=== PATIENT | male | born 1940 | race Caucasian/White ===

== ENCOUNTER 2022-01-29 15:27 | Inpatient (IN) | payer MEDICARE, OTHER ==
[~2022-01-29] VITALS: Ht 177.8 cm; Wt 94.6 kg
--- NOTE | 2022-01-29 15:37 | NUR ---
PT IS IN ROOM #2A. DR العراقي EVALUATED THE PT.
[2022-01-29] MEDS ORDERED: METOPROLOL TARTRATE 50 MG TABLET PO ONE (15:45)
[2022-01-29] MEDS ORDERED: CLOPIDOGREL 75 MG TABLET PO ONE (15:45)
[2022-01-29] MEDS ORDERED: NITROGLYCERIN OINT 1 GM PACKET TP ONE ×2 (15:45→16:08)
[2022-01-29] MEDS ORDERED: ENOXAPARIN SODIUM 30 MG/0.3 ML DISP.SYRIN SUBCUT ONE (15:45)
[2022-01-29] MEDS ORDERED: ASPI81TA31 PO (15:57)
[2022-01-29] MEDS ORDERED: AMLO10TA4 PO (15:57)
[2022-01-29] MEDS ORDERED: ZOLP10TA2 PO (15:57)
[2022-01-29] MEDS ORDERED: METF-440 PO (15:57)
[2022-01-29] MEDS ORDERED: CA C1TAB71 PO (15:57)
[2022-01-29] MEDS ORDERED: OXYC-133 PO (15:57)
[2022-01-29] MEDS ORDERED: LISI20TA30 PO (15:57)
[2022-01-29] MEDS ORDERED: NALO25TA4 PO (15:57)
[2022-01-29] MEDS ORDERED: CYAN-51 PO (15:57)
[2022-01-29] MEDS ORDERED: CLOPIDOGREL 75 MG TABLET ONE (16:07)
[2022-01-29] MEDS ORDERED: METOPROLOL TARTRATE 50 MG TABLET ONE (16:07)
[2022-01-29] MEDS ORDERED: ENOXAPARIN SODIUM 100 MG/ML DISP.SYRIN SQ ONE (16:07)
[2022-01-29 16:15] LABS: HEMATOCRIT 25.4 % (36.7-47.1); MEAN CORPUSCULAR HEMOGLOBIN 34.5 uug (23.8-33.4); MEAN CORPUSCULAR VOLUME 102.5 fL (73.0-96.2); PLATELET COUNT (AUTO) 337 K/uL (152-348)
[2022-01-29 16:21] LABS: CARBON DIOXIDE 21 mmol/L (21-32); CHLORIDE 104 mmol/L (98-107); CREATININE 1.3 mg/dL (0.6-1.3); GLUCOSE 170 mg/dL (74-106); POTASSIUM 4.2 mmol/L (3.5-5.1); UREA NITROGEN, BLOOD 23 mg/dL (7-18)
[2022-01-29 16:34] LABS: ALANINE AMINOTRANSFERASE 12 U/L (16-63); ALKALINE PHOSPHATASE 66 U/L (50-136); ASPARTATE AMINOTRANSFERASE 8 U/L (15-37); BILIRUBIN,DIRECT 0.4 mg/dL (0.0-0.2); BILIRUBIN,TOTAL 1.4 mg/dL (0.2-1.0); TOTAL PROTEIN, SERUM 6.8 g/dL (6.4-8.2)
[2022-01-29] MEDS ORDERED: LISI1TAB55 PO (17:10)
[2022-01-29] MEDS ORDERED: OXYCODONE/APAP 5-325 MG TABLET PO ONE (18:30)
[2022-01-29] MEDS ORDERED: OXYCODONE/APAP 5-325 MG TABLET ONE (18:47)
--- NOTE | 2022-01-29 19:00 | NUR ---
Report received from morning shift. Pt sitting in bed, AOx4. Denies any pain or discomfort at this time. No SOB or labored breathing.
[2022-01-29] MEDS ORDERED: ONDANSETRON 4 MG/2 ML VIAL IV PRN (20:15)
[2022-01-29] MEDS ORDERED: Medication Not On Formulary EA (Lisinopril/HCTZ (Lisinopril-Hctz 20-12.5 Mg Tab) 1 TAB) PO SCH (20:15)
[2022-01-29] MEDS ORDERED: MAGNESIUM HYDROXIDE 30 ML LIQUID UDC PO PRN (20:15)
[2022-01-29] MEDS ORDERED: HYDROCODONE/APAP 5-325MG TABLET PO PRN (20:30)
[2022-01-29] MEDS ORDERED: LISINOPRIL 20 MG TABLET PO SCH (21:00)
[2022-01-29] MEDS ORDERED: HYDROCHLOROTHIAZIDE 12.5 MG CAPSULE PO SCH (21:00)
--- NOTE | 2022-01-29 21:01 | NUR ---
Report given to Delilah YOUNG. Pt going to room 319
--- NOTE | 2022-01-29 21:10 | NUR ---
Admitted a 81 years old male with Dx of CP. Patient AAOX4. In no apparent distress. Denies any CP or any other pain. Denies SOB during admission. O2 sat at 98% on RA. IV site on left AC intact and patent. With 2+ pitting edema on bilateral LE. NSR on tele with HR of 79/min. Routine admission care done. Plan of care initiated. Safety measure initiated and call light within reached. Continue to monitor.
--- NOTE | 2022-01-29 21:18 | NUR ---
Pt. admitted to Tele room 319, under care of Dr. Navarrete. Belongs List completed.
[2022-01-29 21:30] VITALS: BP 124/59
[2022-01-29] MEDS: ZOLPIDEM 5 MG TABLET PO PRN (21:47)
[2022-01-30 04:00] VITALS: BP 111/60
--- NOTE | 2022-01-30 05:26 | NUR ---
In no acute distress. No complain of any pain or SOB. NSR with 1st degree AV block on tele with HR of 75/min. IV site on left AC intact and patent. Needs attended to and met. Safety measure maintained and call light within reached.
[2022-01-30] MEDS: PANTOPRAZOLE SODIUM 40 MG TABLET.DR PO SCH (06:18)
[2022-01-30 06:31] LABS: HEMATOCRIT 22.8 % (36.7-47.1); MEAN CORPUSCULAR HEMOGLOBIN 34.7 uug (23.8-33.4); MEAN CORPUSCULAR VOLUME 101.1 fL (73.0-96.2); PLATELET COUNT (AUTO) 326 K/uL (152-348)
[2022-01-30 06:53] LABS: CREATININE 1.3 mg/dL (0.6-1.3); PHOSPHOROUS 3.3 mg/dL (2.5-4.9); POTASSIUM 4.3 mmol/L (3.5-5.1); TOTAL PROTEIN, SERUM 6.1 g/dL (6.4-8.2)
[2022-01-30 07:22] LABS: THYROID STIMULATING HORMONE 1.888 mIU/mL (0.358-3.740)
[2022-01-30] MEDS ORDERED: HYDROCHLOROTHIAZIDE 12.5 MG CAPSULE PO SCH (09:00)
[2022-01-30] MEDS ORDERED: LISINOPRIL 20 MG TABLET PO SCH ×2 (09:00)
[2022-01-30] MEDS: ASPIRIN 81 MG TAB.CHEW PO SCH (09:17)
[2022-01-30] MEDS: CYANOCOBALAMIN 1,000 MCG TABLET PO SCH (09:17)
[2022-01-30] MEDS: AMLODIPINE 10 MG TABLET PO SCH (09:19)
[2022-01-30] MEDS: ACETAMINOPHEN 325 MG TABLET PO PRN (09:20)
[2022-01-30] MEDS: LISINOPRIL 10 MG TABLET PO SCH ×2 (09:28→21:30)
[2022-01-30] MEDS: METOPROLOL TARTRATE 25 MG TABLET PO SCH ×2 (09:29→21:29)
[2022-01-30 10:46] VITALS: BP 104/47
--- NOTE | 2022-01-30 12:30 | NUR ---
[place] discontinued. Percocet ordered for pain scaled 6-10 per works for patient better.
[2022-01-30] MEDS: OXYCODONE/APAP 5-325 MG TABLET PO PRN ×2 (13:16→21:38)
[2022-01-30] MEDS ORDERED: FAMO20TA8 PO (17:19)
--- NOTE | 2022-01-30 19:35 | NUR ---
Patient received care well today with no signs of distress or discomfort. Bed left in lowest position with call light within reach. Will endorse information to PM nurse.
[2022-01-30 20:25] VITALS: BP 112/52
--- NOTE | 2022-01-30 20:40 | NUR ---
Patient alert oriented, no sob no chest pain, on tele monitor sinus rhythm sinus domi, no complain of pain, bp stable, cont to monitor.
[2022-01-30] MEDS: ATORVASTATIN 40 MG TABLET PO SCH (21:29)
[2022-01-30] MEDS: ZOLPIDEM 5 MG TABLET PO PRN (22:44)
[2022-01-31 00:45] VITALS: BP 105/52
[2022-01-31 04:53] VITALS: BP 123/61
[2022-01-31 05:52] LABS: MEAN CORPUSCULAR VOLUME 100.8 fL (73.0-96.2); PLATELET COUNT (AUTO) 326 K/uL (152-348)
[2022-01-31] MEDS: PANTOPRAZOLE SODIUM 40 MG TABLET.DR PO SCH (05:58)
[2022-01-31 05:59] LABS: CREATININE 1.3 mg/dL (0.6-1.3); MAGNESIUM 2.3 mg/dL (1.8-2.4); PHOSPHOROUS 3.8 mg/dL (2.5-4.9); POTASSIUM 4.6 mmol/L (3.5-5.1)
--- NOTE | 2022-01-31 05:59 | NUR ---
Patient alert oriented, no sob no chest pain, slept most part of the night, no complain of pain, tele monitor sinus rhythm sinus domi, cont to monitor.
[2022-01-31] MEDS: ASPIRIN 81 MG TAB.CHEW PO SCH (08:14)
[2022-01-31] MEDS: CYANOCOBALAMIN 1,000 MCG TABLET PO SCH (08:14)
[2022-01-31] MEDS: AMLODIPINE 10 MG TABLET PO SCH (08:14)
[2022-01-31] MEDS: LISINOPRIL 10 MG TABLET PO SCH ×2 (08:15→21:03)
[2022-01-31] MEDS: METOPROLOL TARTRATE 25 MG TABLET PO SCH ×2 (08:15→21:04)
[2022-01-31] MEDS: OXYCODONE/APAP 5-325 MG TABLET PO PRN ×2 (08:15→17:37)
--- NOTE | 2022-01-31 09:40 | NUR ---
A call from Nursing on car supervisor and at this time I was informed that Dr. Segundo had call and informed her that pt. was going for cardiac catheterization and [facility] Wednesday. At this time Dr. Segundo called for clarification awaiting call back.
[2022-01-31 10:38] VITALS: BP 103/52
--- NOTE | 2022-01-31 13:58 | NUR ---
A call back from Dr. Segundo and orders to transfer pt. to [facility] this Wednesday02/02/2022. Also orders to consent patient for cardiac cath. As stated by . procedure discussed with pt. this morning.
[2022-01-31 15:58] VITALS: BP 111/48
--- NOTE | 2022-01-31 19:34 | NUR ---
Patient lying in bed, resting. Easily arousable. AOX4. On room air. BRP. Pt is aware of transferring to [facility] 02/01 for cardiac cath on 02/02am. Denies any discomfort and chest pain at this time. Call lights within reach. Safety measures implemented.
[2022-01-31 20:37] VITALS: BP 129/53
[2022-01-31] MEDS: ATORVASTATIN 40 MG TABLET PO SCH (21:01)
[2022-01-31] MEDS: ZOLPIDEM 5 MG TABLET PO PRN (21:04)
[2022-02-01] MEDS: OXYCODONE/APAP 5-325 MG TABLET PO PRN ×2 (00:30→15:48)
[2022-02-01 00:32] VITALS: BP 113/51
[2022-02-01 04:35] VITALS: BP 121/54
--- NOTE | 2022-02-01 05:26 | NUR ---
Slept well through the night. On room air saturating at 98%. Sinus Rhythm on teletypesetter monitor. Denies chest pain. No signs of acute distress. Percocet given once for back pain, effective. Call lights within reach. Safety measures maintained. Will endorse to am shift for continuity of care.
[2022-02-01] MEDS: PANTOPRAZOLE SODIUM 40 MG TABLET.DR PO SCH (06:00)
--- NOTE | 2022-02-01 08:00 | NUR ---
AWAKE ALERT AND ORIENTED X3 DENIES PAIN OR SOB. C/O CONSTIPATION X4 DAYS, WILL NOTIFY MD FOR ORDERS
[2022-02-01] MEDS ORDERED: BISACODYL 10 MG SUPP.RECT RC PRN (08:45)
[2022-02-01] MEDS: ASPIRIN 81 MG TAB.CHEW PO SCH (09:27)
[2022-02-01] MEDS: CYANOCOBALAMIN 1,000 MCG TABLET PO SCH (09:27)
[2022-02-01] MEDS: LISINOPRIL 10 MG TABLET PO SCH ×2 (09:42→20:42)
[2022-02-01] MEDS: METOPROLOL TARTRATE 25 MG TABLET PO SCH ×2 (09:42→20:42)
[2022-02-01] MEDS: AMLODIPINE 10 MG TABLET PO SCH (09:43)
[2022-02-01] MEDS: ACETAMINOPHEN 325 MG TABLET PO PRN (09:57)
--- NOTE | 2022-02-01 10:00 | NUR ---
DR MONROY NOTIFIED OF PT C/O CONSTIPATION WITH ORDER FOR SUPPOSITORY
[2022-02-01 11:17] VITALS: BP 103/51
[2022-02-01] MEDS: IV NS 1000 ML 1,000 ML IV PRN (11:39)
--- NOTE | 2022-02-01 12:42 | NUR ---
PATIENT ABLE TO MOVE BOWEL AFTER DULCOLAX SUPPOSITORY
[2022-02-01 16:32] VITALS: BP 131/59
[2022-02-01 20:18] VITALS: BP 124/54
[2022-02-01] MEDS: ATORVASTATIN 40 MG TABLET PO SCH (20:43)
[2022-02-01] MEDS: ZOLPIDEM 5 MG TABLET PO PRN ×2 (20:44→23:56)
[2022-02-01] MEDS ORDERED: OXYCODONE/APAP 5-325 MG TABLET PO ONE (21:30)
[2022-02-02 00:55] VITALS: BP 117/50
[2022-02-02] MEDS: IV NS 1000 ML 1,000 ML IV PRN (01:00)
[2022-02-02] MEDS: TRAZODONE 50 MG TABLET PO PRN ×2 (01:58→02:02)
[2022-02-02] MEDS: OXYCODONE/APAP 5-325 MG TABLET PO PRN (04:01)
[2022-02-02 04:18] VITALS: BP 121/55
[2022-02-02] MEDS: PANTOPRAZOLE SODIUM 40 MG TABLET.DR PO SCH (05:47)
--- NOTE | 2022-02-02 07:30 | NUR ---
Received in bed awake and conversant. Denies chest pain or sob. No distress noted. Stated didn't sleep much last night. Iv fluids running as ordered no signs of infiltration noted on IV site. Patient is comfortable. Aware of pending transfer to [place] and agreeable with plan. safety maintained. Cont to monitor.
[2022-02-02 07:52] LABS: ALANINE AMINOTRANSFERASE 18 U/L (16-63); ALKALINE PHOSPHATASE 54 U/L (50-136); ASPARTATE AMINOTRANSFERASE 7 U/L (15-37); CARBON DIOXIDE 22 mmol/L (21-32); CHLORIDE 107 mmol/L (98-107); CREATININE 1.4 mg/dL (0.6-1.3); GLUCOSE 135 mg/dL (74-106); MAGNESIUM 2.8 mg/dL (1.8-2.4); PHOSPHOROUS 4.1 mg/dL (2.5-4.9); POTASSIUM 4.2 mmol/L (3.5-5.1); TOTAL PROTEIN, SERUM 5.5 g/dL (6.4-8.2); UREA NITROGEN, BLOOD 18 mg/dL (7-18)
[2022-02-02 08:12] LABS: HEMATOCRIT 22.4 % (36.7-47.1); MEAN CORPUSCULAR HEMOGLOBIN 33.9 uug (23.8-33.4); MEAN CORPUSCULAR VOLUME 100.8 fL (73.0-96.2); PLATELET COUNT (AUTO) 287 K/uL (152-348)
[2022-02-02 08:35] VITALS: BP 119/58
[2022-02-02] MEDS: AMLODIPINE 10 MG TABLET PO SCH (08:42)
[2022-02-02] MEDS: METOPROLOL TARTRATE 25 MG TABLET PO SCH (08:42)
[2022-02-02] MEDS: CYANOCOBALAMIN 1,000 MCG TABLET PO SCH (08:42)
[2022-02-02] MEDS: ASPIRIN 81 MG TAB.CHEW PO SCH (08:42)
[2022-02-02] MEDS ORDERED: OXYCODONE/APAP 5-325 MG TABLET PO PRN ×2 (10:00→10:30)
[2022-02-02] MEDS ORDERED: ISOSORBIDE MONONITRATE 30 MG TAB.SR.24H PO SCH (10:00)
--- NOTE | 2022-02-02 10:03 | NUR ---
Received call from Brisa AMES at [facility] and was given Dr. Trevino's phone number to give to Dr. Navarrete/Roberto for peer to peer endorsement.
--- NOTE | 2022-02-02 10:24 | NUR ---
Informed Dr. Navarrete that per patient percocet 5/325 for pain is ineffective. new order noted.
[2022-02-02] MEDS ORDERED: ISOS30TA86 PO (10:29)
[2022-02-02] MEDS ORDERED: AMLO-212 PO (10:29)
[2022-02-02] MEDS ORDERED: TRAZ-252 PO (10:29)
[2022-02-02] MEDS ORDERED: ACET325T53 PO (10:29)
[2022-02-02] MEDS ORDERED: METO25TA6 PO (10:29)
[2022-02-02] MEDS ORDERED: ATOR40TA PO (10:29)
[2022-02-02] MEDS ORDERED: BISA10SU12 RC (10:29)
--- NOTE | 2022-02-02 11:05 | NUR ---
Received call from Brisa AMES from [facility]. She will arrange transportation for 12pm p/u to [place]. Patient agreeable. Peer-to peer endorsement done with Dr. Navarrete/Roberto and Dr. Trevino.
--- NOTE | 2022-02-02 11:28 | NUR ---
Report given to Reva YOUNG at [place] [phone].
--- NOTE | 2022-02-02 11:57 | NUR ---
Went over discharge instructions with the patient he verbalized understanding. No other questions/complaints at this time.
[2022-02-02 12:18] VITALS: BP 101/51
--- NOTE | 2022-02-02 12:50 | NUR ---
Picked up by [facility] ambulance [facility] transfer to [facility] in stable condition.
[2022-02-02 13:35] LABS: NEUTROPHILS % (MANUAL) 0 % (42-75)
[2022-02-03] MEDS ORDERED: AMLODIPINE 10 MG TABLET PO SCH (09:00)
[2022-02-03] MEDS ORDERED: AMLODIPINE 5 MG TABLET PO SCH (09:00)
== END 2022-02-02 12:50 | disposition short-term general hospital (02) | DRG 302 ==
LOC: ER 15:34 → TELE3 18:33
PROVIDERS: ADMIT Internal Medicine; ATTEND Internal Medicine
DX: I25.110 Atherosclerotic heart disease of native coronary artery with unstable angina pectoris (principal); N17.0 Acute kidney failure with tubular necrosis; I13.10 Hypertensive heart and chronic kidney disease without heart failure, with stage 1 through stage 4 chronic kidney disease, or unspecified chronic kidney disease; D50.9 Iron deficiency anemia, unspecified; E66.9 Obesity, unspecified; N18.9 Chronic kidney disease, unspecified; I08.0 Rheumatic disorders of both mitral and aortic valves; E11.319 Type 2 diabetes mellitus with unspecified diabetic retinopathy without macular edema; I42.9 Cardiomyopathy, unspecified; G89.29 Other chronic pain; G47.00 Insomnia, unspecified; E11.22 Type 2 diabetes mellitus with diabetic chronic kidney disease; I51.89 Other ill-defined heart diseases; M51.9 Unspecified thoracic, thoracolumbar and lumbosacral intervertebral disc disorder; E11.65 Type 2 diabetes mellitus with hyperglycemia; Z90.79 Acquired absence of other genital organ(s); Z88.5 Allergy status to narcotic agent; Z85.46 Personal history of malignant neoplasm of prostate; Z96.651 Presence of right artificial knee joint; Z79.82 Long term (current) use of aspirin; Z79.899 Other long term (current) drug therapy; Z79.84 Long term (current) use of oral hypoglycemic drugs; Z90.89 Acquired absence of other organs; Z68.29 Body mass index [BMI] 29.0-29.9, adult
CPT/HCPCS: 36415; 70030-TC; 71045; 83550; 83735; 84100; 84443; 84484; 85025; 85730; 86850; 86900; 86901; 93005; 93307; 97161; A4663; G0378; J1650; J7030